=== PATIENT | male | born 1985 | race Caucasian/White ===

== ENCOUNTER 2022-12-28 13:10 | Emergency (ER) | payer MEDICAID ==
[~2022-12-28] VITALS: Ht 175.3 cm; Wt 89.0 kg
[2022-12-28 14:09] LABS: ALANINE AMINOTRANSFERASE 22 U/L (12-78); ALBUMIN 4.2 G/DL (3.4-5.0); ALBUMIN/GLOBULIN RATIO 1.1 (1.1-1.5); ALKALINE PHOSPHATASE 60 IU/L (46-116); ANION GAP 14 (8-16); ASPARTATE AMINO TRANSFERASE 14 U/L (10-37); BILIRUBIN,TOTAL 0.4 MG/DL (0.1-1.0); BLOOD UREA NITROGEN 20 MG/DL (7-18); BUN/CREATININE RATIO 15.4 (10.0-20.0); CALCIUM 9.1 MG/DL (8.5-10.1); CHLORIDE 101 MMOL/L (99-107); GLUCOSE 118 MG/DL (70-104); LIPASE < 50 U/L (73-393); POTASSIUM 3.8 MMOL/L (3.5-5.1); SODIUM 139 MMOL/L (135-145); TOTAL CARBON DIOXIDE 24.5 MMOL/L (24-32); TOTAL PROTEIN 7.9 G/DL (6.4-8.2); eGFR 61 ML/MIN
[2022-12-28 14:10] LABS: CLARITY,URINE CLOUDY (Clear); COLOR,URINE YELLOW (Yellow); GLUCOSE, URINE NEGATIVE (Neg); KETONES,URINE TRACE mg/dl (Neg); LEUKOCYTE ESTERASE ,URINE NEGATIVE (Neg); NITRITES, URINE NEGATIVE (Neg); OCCULT BLOOD,URINE NEGATIVE (Neg); PROTEIN,URINE NEGATIVE (Neg)
[2022-12-28 14:13] LABS: UA COLLECTION TYPE CLN CATCH MIDSTREAM
[2022-12-28 14:18] LABS: BASOPHILS # (AUTO) 0.1 X10'3 (0-0.2); BASOPHILS % (AUTO) 0.4 % (0-1); EOSINOPHILS # (AUTO) 0.1 X10'3 (0-0.9); EOSINOPHILS % (AUTO) 0.5 % (0-6); HEMATOCRIT 37.5 % (42.0-52.0); HEMOGLOBIN 12.4 g/dl (14.0-17.9); LYMPHOCYTES # (AUTO) 2.4 X10'3 (1.1-4.8); LYMPHOCYTES % (AUTO) 18.6 % (21-51); MEAN CORPUSCULAR HEMOGLOBIN 28.9 PG (27.0-31.0); MEAN CORPUSCULAR HGB CONC 33.1 g/dL (33.0-36.5); MEAN CORPUSCULAR VOLUME 87.4 FL (78-98); MEAN PLATELET VOLUME 7.3 FL (7.4-10.4); NEUTROPHILS # (AUTO) 9.2 X10'3 (1.8-7.7); NEUTROPHILS % (AUTO) 72.5 % (42-75); PLATELET COUNT 653 X10'3 (140-440); RED BLOOD COUNT 4.29 X10'6 (4.70-6.10); RED CELL DISTRIBUTION WIDTH 14.6 % (11.5-14.5); WHITE BLOOD COUNT 12.7 X10'3 (4.5-11.0)
[2022-12-28 14:37] LABS: MUCUS STRANDS MANY /LPF (Neg)
[2022-12-28 14:38] LABS: BACTERIA,URINE FEW /HPF (Neg); SQUAMOUS EPITHELIAL CELL,UR FEW /LPF (FEW)
[2022-12-28 14:39] LABS: RBC,URINE 0-2 /HPF (0-2); WBC,URINE 0-4 /HPF (0-4)
[2022-12-28] MEDS ORDERED: normal saline 1000ml 1,000 ML IV ONE (15:50)
[2022-12-28] MEDS ORDERED: ondansetron/PF 4mg/2ml inj IV ONE ×2 (15:50→18:55)
[2022-12-28] MEDS ORDERED: iohexol 300mg/ml 100ml inj. ONE (16:15)
[2022-12-28] MEDS ORDERED: pantoprazole 40mg IV 80 MG in normal saline 100ml IV soln 100 ML IV ONE (17:45)
[2022-12-28] MEDS ORDERED: LIDOcaine Viscous 15ml cup MM STA (17:45)
[2022-12-28] MEDS ORDERED: mag hydrox/Alum hydrox/simeth 30ml oral suspension PO ONE (17:45)
[2022-12-28 18:06] VITALS: BP 156/84
[2022-12-28] MEDS ORDERED: MAG355OR18 PO (18:44)
[2022-12-28] MEDS ORDERED: PANT-47 PO (18:44)
[2022-12-28] MEDS ORDERED: ONDA4TAB12 PO (18:44)
== END 2022-12-28 20:05 | disposition home or self-care (01) ==
LOC: ER 13:11
DX: K29.00 Acute gastritis without bleeding (principal); R11.2 Nausea with vomiting, unspecified; R10.13 Epigastric pain; F17.200 Nicotine dependence, unspecified, uncomplicated
CPT/HCPCS: 74177; 80053; 81001; 83690; 85025; 96365; 96366; 96375; 99285; C9113; J2405; J3490; J7030; Q9967

== ENCOUNTER 2024-04-24 21:41 | Emergency (ER) | payer MEDICAID ==
[~2024-04-24] VITALS: Ht 175.3 cm; Wt 101.2 kg
[~2024-04-24 21:41] MED LIST: ONDA-243 PO; PANT-47 PO
[2024-04-24 21:56] VITALS: BP 173/97; PULSE 99; RESP 18; TEMP 98.3; O2SAT 9
[2024-04-24] MEDS ORDERED: SULF1TAB49 PO (22:56)
[2024-04-24] MEDS: LIDOcaine 1% (10mg/ml)w/preservative inj. 20ml MDV SQ ONE (23:25)
== END 2024-04-24 23:32 | disposition home or self-care (01) ==
LOC: ER 21:42
DX: L02.612 Cutaneous abscess of left foot (principal); Z79.899 Other long term (current) drug therapy; Z79.2 Long term (current) use of antibiotics
CPT/HCPCS: 99283; A6449

== ENCOUNTER 2024-06-05 20:43 | Emergency (ER) | payer MEDICAID ==
[~2024-06-05] VITALS: Ht 175.3 cm; Wt 97.7 kg
[2024-06-05 20:45] VITALS: BP 154/87; PULSE 86; TEMP 99.1; O2SAT 98
[2024-06-05] MEDS ORDERED: penicillin G benzathine 1.2 million unit/2ml syringe IM ONE (21:50)
[2024-06-05] MEDS: dexamethasone sod phosphate 10mg/ml inj PO STA (22:30)
[2024-06-05 22:32] VITALS: RESP 16
[2024-06-05] MEDS: ketorolac trometh 15mg/ml vial 15 MG/ML ML IM ONE (22:32)
[2024-06-05] MEDS: PENICILLIN G BENZATHINE 2,400,000 UNIT/4 ML SYRINGE IM ONE (22:32)
== END 2024-06-05 22:41 | disposition home or self-care (01) ==
LOC: ER 20:44
DX: J02.0 Streptococcal pharyngitis (principal); Z79.899 Other long term (current) drug therapy
CPT/HCPCS: 96372; 99284; J0561; J1100; J1885